=== PATIENT | male | born 1980 | race Caucasian/White ===

== ENCOUNTER 2024-08-18 19:08 | Emergency (ER) | payer BC, SELFPAY ==
--- NOTE | 2024-08-18 19:11 | ED_ITS ---
HPI - Skin/Abscess/Foreign Bdy General Chief complaint: Skin/Abscess/Foreign Body Stated complaint: ABSCESS Time Seen by Provider: 08/18/24 19:10 Source: patient Mode of arrival: ambulatory Limitations: no limitations History of Present Illness HPI narrative: Rachel is a 44-year-old male patient presenting to the clinic today with complaints a sore on his right inner buttocks. He reports reoccurring abscess/boil to this area approximately every 6 months and it drains. First noticed it swelling up yesterday and became or painful today and was not draining. It started draining on his way here to the clinic today. Denies any fevers, chills, body aches. No nausea or vomiting. Works at the [employer]. Was placed on clindamycin in the past for this and it helped. Related Data Allergies Allergy/AdvReac Type Severity Reaction Status Date / Time morphine Allergy Mild Rash Verified 08/18/24 19:23 amoxicillin AdvReac Unknown NOT Verified 08/18/24 19:23 EFFECTIVE,TOOK ALOT A CHILD Review of Systems Review of Systems: Pertinent positives per HPI. Patient denies any fever, chills, rash, headache, visual changes, dizziness, cough, runny nose, sore throat, shortness of breath, chest pain, palpitations, nausea, vomiting, diarrhea, constipation, abdominal pain, or any urinary issues. PMFSH Surgical History Surgical History H/O shoulder surgery (~08/2018) Social History Social History Smoking status: Never smoker Alcohol intake: current Drinks per week: 2 Substance use: never Substance use type: does not use Living arrangements: with family Gender identity (if verbalized by the patient): Male Sexual Orientation (if Verbalized by the Patient): Straight or Heterosexual Comments At the time of my signature, I reviewed and agree with the nursing past medical, surgical, social, and family history. There is no relevant family history pertinent to the patient complaint. Exam Narrative: General: Well-developed, well nourished, in no apparent distress Head: Normocephalic, atraumatic. Cardio: Regular rate and rhythm, s1 and s2 normal, no murmur appreciated. Resp: Clear to auscultation bilaterally, no rhonchi, rales, wheezing or rubs. Integumentary: [place], warm, and dry, 1 x 1 cm non indurated abscess draining whitish brown discharge. TTP. No s/s of Angela's Course Course Emergency Course: Portions of this record may have been created with voice recognition software. Level of Care: Express Care Visit Vital Signs Vital signs: Vital Signs Temperature 36.6 C 08/18/24 19:13 Pulse Rate 132 H 08/18/24 19:13 Respiratory Rate 16 08/18/24 19:13 Blood Pressure 120/87 08/18/24 19:13 Pulse Oximetry 96 08/18/24 19:13 Oxygen Delivery Room Air 08/18/24 19:13 Temperature 36.6 C 08/18/24 19:13 Pulse Rate 132 H 08/18/24 19:13 Respiratory Rate 16 08/18/24 19:13 Blood Pressure 120/87 08/18/24 19:13 Pulse Oximetry 96 08/18/24 19:13 Oxygen Delivery Room Air 08/18/24 19:15 Vital signs reviewed MDM - Skin/Abscess/Foreign Bdy MDM Narrative Medical decision making narrative: At the time of visit patient is resting comfortably on the exam table. Patient appears to be nontoxic. Plan: Patient has a reoccurring draining abscess to the right inner buttocks. Prescription for clindamycin was sent to the pharmacy. Supportive measures were discussed with the patient and they voiced understanding discharge instructions and agrees to treatment plan. Return precautions reviewed Differential Diagnosis Differential diagnosis: Likely abscess of skin or subcutaneous tissue, viral exanthem, dermatophytosis, urticaria, herpes zoster, allergic reaction to drug, cellulitis, eczema, insect bites, impetigo and contact dermatitis Discharge Plan Discharge Clinical Impression: Abscess of buttock, right Patient Disposition: Home, Self-Care Condition: Stable Instructions: Antibiotic Form, Abscess (ED) Additional Instructions: Abscess culture was obtained and sent to the lab. Keep areas clean and dry as possible Continue Sitz baths or apply warm compresses to the affected area to facilitate drainage Take clindamycin as prescribed May take Tylenol/Motrin as needed for pain Follow-up with your primary care doctor in 3 days for wound check Patient Language: Gabonese Prescriptions: New clindamycin HCl [Cleocin HCl] 300 mg capsule 300 mg PO Q8H 10 Days Qty: 30 0RF No Action clindamycin HCl 300 mg capsule 300 mg PO Q8H Qty: 10 0RF Follow-up/Referrals: PHYSICIAN,COMPANY LAUNDRY WORKER [Primary Care Provider] - Cali Kaur MD [Physician] - 2 Days (Reoccurring abscess to the right buttocks) Time of Disposition: 19:24 Quality NIHSS Nursing Documentation ED NIHSS nursing documentation: reviewed/agree
[2024-08-18 19:13] VITALS: BP 120/87; PULSE 132; RESP 16; TEMP 36.6; O2SAT 96
[2024-08-18 19:30] VITALS: PULSE 100; RESP 18; O2SAT 98
--- NOTE | 2024-08-18 19:37 | PC.NURSE ---
THE AREA BEGAN TO DRAIN ON ITS OWN, DRAINAGE WAS NOTED IN UNDERWEAR AND PANTS WHEN THEY WERE REMOVED. WOUND CULTURE WAS OBTAINED.
== END 2024-08-18 19:30 | disposition home or self-care (01) ==
PROVIDERS: Emergency Provider Nurse Practitioner Family
DX: L02.31 Cutaneous abscess of buttock (principal)
CPT/HCPCS: 87070; 87075; 87205; 99213; G0463

== ENCOUNTER 2025-02-21 00:02 | Day surgery (SDC) | payer BC, SELFPAY ==
--- NOTE | 2025-02-09 14:12 | PC.NURSE ---
[facility] has started construction of its new state of the art ER which will open Spring 2026. With this, we anticipate parking may be a challenge for some our surgical patients and families. Parking spaces are limited but are available for all Surgical, obstetrics, and ER patients sharing this lot. If you arrive and find you are having a hard time finding a parking space, please note that we understand the challenges, please drive around the hospital and park near Hospital Entrance 1. When you enter this entrance, you can ask a volunteer to direct or take you back to the surgical waiting area to check in. We appreciate everyone?s understanding of these expected challenges while we build for your future. Report to the Outpatient Waiting Room, entrance under the green pavilion located off [address], at time _1130 on date __02/21/25 . Planned Procedure Time: _1330 .? Time changes happen often and if your time is changed the preop area will call you the afternoon before. - You and your visitor will be asked to self-screen and do not enter if you have any COVID symptoms. Please call surgeon if you need to reschedule. - A mask is optional within the hospital at this time. Patients may have clear liquids (water, carbonated beverages, clear teas, apple juice) until 3 hours prior to surgery with a maximum of 20 ounces. - No food from midnight until time of surgery and no smoking, or chewing tobacco (or any form of nicotine). No chewing gum, candy or mints. Take only the following medications with a SIP of water on the morning of surgery: ___n/a DO NOT STOP ANY OF YOUR OTHER PRESCRIPTION MEDICATIONS PRIOR TO SURGERY EXCEPT THE FOLLOWING Hold all vitamins and supplements for 3 days per anesthesiologist. Medications to discontinue per physician ___creatine Date to take last dose___02/06/25 Please no make-up, nail indonesian, hairspray, perfume, deodorant, or body powder the day of surgery.? No jewelry (including any body piercings) or valuables the day of surgery, leave them at home.? Please take a shower or bath the night before, or the morning of, surgery with an antibacterial soap.? Wear comfortable, loose fitting clothing.? - Jewelry must be removed prior to entering the operating room.? Rings and piercings that are not removed may be cut off. - The hospital will not accept responsibility for valuables.? - Please leave all valuables, including medications, at home the day of surgery. If you are going home after surgery, a licensed fast food delivery driver must drive you home.? - NO public transportation without another adult if you receive anesthesia. - We recommend that an adult stay with you for 24 hours following discharge. - We also recommend that you do not drive, make important decision, drink alcoholic beverages, or take any drugs that were not prescribed by your health care provider for at least 24 hours after your discharge time. Follow any additional instructions given to you from your surgeon. Telephone instructions given to _Rodney and asked if any additional questions and then verbalized understanding. Patient advised to call surgeon office or pre surgery nurse liaison [phone] if any additional questions.
[2025-02-21] VITALS (8 sets, daily range): BP systolic 112–143; BP diastolic 82–91; PULSE 60–72; RESP 13–14; TEMP 36.3–37.2; O2SAT 98–100; BMI 34.2
[2025-02-21] MEDS: KETOROLAC 15 MG/ML VIAL (*BKC) IV PUSH (08:43)
[2025-02-21] MEDS: ACETAMINOPHEN 500 MG TABLET 1000 MG PO (08:43)
--- NOTE | 2025-02-21 09:26 | WPDANESEPPF ---
Anes - Initial Pre Proc Eval Procedure: Operation Date: 02/21/25 10:00 Proposed Procedures p Rectal Examination Under Anesthesia with Possible Anal Fistulotomy - Anton Rand DO Date/Time: 02/21/25 09:26 Surgeon: Anton Rand DO Pre Op Diagnosis: Anal Fissue Patient Data Age: 44 Gender: M Height: 1.91 m Weight: 124.2 kg Last Vital Signs Temp 37.2 C 02/21/25 08:15 Pulse 65 02/21/25 08:15 Resp 14 02/21/25 08:15 BP 143/91 H 02/21/25 08:15 Pulse Ox 100 02/21/25 08:15 O2 Del Method Room Air 02/21/25 08:15 Allergies Allergy/AdvReac Type Severity Reaction Status Date / Time morphine Allergy Mild Rash Verified 02/21/25 08:52 amoxicillin AdvReac Unknown NOT Verified 02/21/25 08:52 EFFECTIVE,TOOK ALOT A CHILD Home Medications ?Medication ?Instructions ?Recorded ?Confirmed ?Type No Home Medications 01/31/25 02/21/25 History Patient hx anesthesia problems: none Family hx anesthesia problems: none Results Review: All pre-operative results and documents have been reviewed as part of the pre-operative evaluation. [facility] Surgical History Surgical History H/O shoulder surgery (~08/2018) Social History Social History Smoking status: Never smoker Alcohol intake: current Drinks per week: 2 Substance use: never Substance use type: does not use Living arrangements: with family Gender identity (if verbalized by the patient): Male Sexual Orientation (if Verbalized by the Patient): Straight or Heterosexual Spiritual care concerns: No Anes - Eval Final PreProcedure Day of Procedure 02/21/25 09:26 Patient weight: obese Heart: regular rate and rhythm Lungs: clear to auscultation Airway: Mallampati scale class III Neurological: alert and oriented Last oral intake: >/= 8 hours ASA classification: III Emergent: no Anesthetic plan: proceed Anesthesia type and monitoring: general ETT and standard monitoring Results Review: All pre-operative results and documents have been reviewed as part of the pre-operative evaluation. Informed Consent: The patient's anesthetic plan and its attendant risks and benefits were discussed with the patient/family/POA. Questions were solicited and answers provided to the satisfaction of the patient/family/POA.
--- NOTE | 2025-02-21 10:26 | WPDHPUPDATE1 ---
History and Physical Update Update Date/Time: 02/21/25 10:26 History and Physical has been reviewed, including an updated exam of the patient. There are NO changes in the patient's condition. Risks, benefits, and alternatives have been discussed and questions answered. Patient agrees to proceed with procedure.
[2025-02-21] MEDS: ceFAZolin 3 GM/D5W 100 ML 100 ML IVPB (10:32)
[2025-02-21] MEDS: HYDROGEN PEROXIDE 3% SOLN(*SP) 473 ML BOTTLE 500 ML IRRIGATION (11:07)
[2025-02-21] MEDS: LACTATED RINGERS 1,000 ML 30 ML IV CONT (11:26)
--- NOTE | 2025-02-21 11:45 | W.PM.PROC2 ---
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 Rectal exam under anesthesia 2. Incision and drainage of complicated perirectal abscess 3. Placement of seton drain Surgeon Anton Rand, Anesthesia General and Local (0.5% bupivacaine with epinephrine) Indications This is a 44-year-old man who presents with intermittent drainage, swelling, and discomfort in the perirectal region. He has a history of an abscess that was drained about 8-10 years ago and then at 1 point had a drain placed. For about the last 6 months he has had intermittent drainage from an area that recently opened up. He has been placed on antibiotics a couple times but continues to have recurrent drainage. On exam he was found to have an area that appeared to be a pinpoint opening or scar in the right lateral location. This was suspected to be a fistula tract. Discussions were made with the patient about treatment options and decision was made to proceed with rectal exam under anesthesia with possible anal fistulotomy. Findings Rectal exam under anesthesia was performed. The patient had some area of induration just anterior to a small dimple on the right lateral perianal skin. I attempted to probe the suspected fistula opening in the right lateral location but could not identify any location where this was tracking towards either the anal canal or to the area of induration. A Hill-Pemberton anoscope was used to inspect the anal rectal canal and no definite fistula tracts were identified initially at the internal location. I then made an incision about 1 cm wide over the area of induration in the right anterior location. I entered into an abscess cavity that was chronically indurated. The abscess was drained and the loculations were broken up. I then was able to probe this area and identify a fistula tract going from this location towards the anterior midline anal canal. After palpating this area it appeared that there was likely a significant amount of the sphincter muscle involved in the fistula tract may be going up and over the sphincter muscle. Decision was made to place a vessel loop for a seton drain. No other abnormalities were noted. Description of Procedure Procedure as well as risks, benefits, and alternatives were discussed with the patient. Written consent was obtained and placed in chart prior to procedure. Patient was brought back to surgical suite. He was placed supine on operating table. Time-out was done to confirm patient and procedure. He was then intubated by the anesthesia department. He was then repositioned to dorsal lithotomy position and stirrups. His perirectal area was prepped and draped in sterile fashion using Betadine prep. Digital rectal exam was initially performed and the perianal skin was carefully examined. A medium Hill-Pemberton anoscope was then inserted and the anal rectal canal was carefully inspected. No mediated abnormalities were identified. There was a small pinpoint divot in the left lateral perianal skin. I attempted probing this location with a small lacrimal probe but could not identify any area of tracking. There did appear to be some induration and possible fluctuance in the right anterior location but I could not identify any tracking up to this area either. 0.5% bupivacaine with epinephrine was then infiltrated locally over the area of induration and fluctuance in the right anterior perirectal region. A 1 cm incision was made using a 15 blade scalpel directly over this. Electrocautery was then used for hemostasis. Careful blunt dissection was carried out with a curved hemostat and I was able to identify a an abscess cavity just deep to my incision. The cavity was opened with the hemostat and a small amount of purulence drainage was drained. There was also some loculations tracking towards the anterior midline perineal region and these loculations were broken up using the hemostat and blunt dissection. I then was able to advance a lacrimal probe through this tract and it did appear to be advancing towards the anterior midline anal rectal canal. I was eventually able to find a tract tracking all the way into the lumen of the the anus. A vessel loop was then placed on the end of the lacrimal probe and this was then drawn through the fistula tract. I carefully palpated the fistula tract and this appeared to be going suprasphincteric or involving a large amount of the sphincter muscle fibers. I did not want to risk incising through too much sphincter muscle fibers therefore decision was made not to perform a fistulotomy. The drain was secured in place using 0 silk ties and was tied in place loosely. One final inspection was made and no other significant abnormalities were identified. 4 x 4 gauze, ABD pad, and mesh underwear were then applied. The patient was then awakened from anesthesia, extubated, and transferred to recovery. Estimated Blood Loss 5 Complications No immediate complications Condition Stable Disposition Same day [facility] Billing Surgery - Charge Forward: Surgery Billing
== END 2025-02-21 12:55 | disposition home or self-care (01) ==
PROVIDERS: PCP Emergency Medicine; Visit Provider Surgery
PROC: (CPT 46020; principal; 2025-02-21 10:00)
DX: K60.329 Anal fistula, complex, unspecified (principal); E66.9 Obesity, unspecified; Z68.34 Body mass index [BMI] 34.0-34.9, adult
CPT/HCPCS: 46020; A9270; J0690; J1100; J1885; J2250; J2405; J2704; J3010; J7120